=== PATIENT | male | born 1985 | race Two or more races ===

== ENCOUNTER 2018-07-30 23:53 | Emergency (ER) | payer SELFPAY ==
[~2018-07-30] VITALS: Ht 188 cm; Wt 117.9 kg
[2018-07-31 00:57] VITALS: BP 126/85
== END 2018-07-31 01:30 | disposition left against medical advice (07) ==
LOC: EDBD 23:53 → ER 23:53
DX: M54.2 Cervicalgia (principal); Z53.21 Procedure and treatment not carried out due to patient leaving prior to being seen by health care provider